=== PATIENT | male | born 1965 | race Caucasian/White ===

== ENCOUNTER → 2018-02-20 | Outpatient (CLI) | payer OTHER ==
[~2018-02-20] VITALS: Ht 175.3 cm; Wt 74.8 kg
[~2018-02-20] MED LIST: HUMIRA40 MG/0.1 SUBQ; MULTI VITAMIN1 EACH PO
--- NOTE | ~2018-02-20 | PATH ---
[facility] [place] [address] PATHOLOGY RPT PROCEDURE Name: THALIA LEIGH Room #: REG [facility] M.Charo.#: [id number] Admission: 02/20/18 Date of : 69 Discharge: Report #: [id number] Path Case #: [id number] [facility] Accession Number: [id number] . 01 Material submitted: . PART A: RANDOM BX OF CECUM AND ASCENDING COLON R/O DYSPLASIA HX OF CROHNS PART B: RANDOM BX OF TRANSVERSE COLON R/O DYSPLASIA HX OF CROHNS PART C: RANDOM BX OF DESCENDING COLON R/O DYSPLASIA HX OF CROHNS PART D: POLYP AT DESCENDING COLON PART E: RANDOM BX AT SIGMOID R/O DYSPLASIA HX OF CROHNS PART F: RANDOM BX AT RECTUM R/O DYSPLASIA HX OF CROHNS . 01 Clinical history: . Pre-OP DX: Hx of Crohn's Post-OP DX: Colon polyp, Hx of Crohn's . 02 Diagnosis: A. Colonic mucosa, "random biopsy of cecum and ascending colon": - Mildly active chronic colitis with acute cryptitis and with lamina propria chronic inflammation. No well-defined granulomas seen. - There is no evidence of dysplasia or malignancy. . B. Colonic mucosa, "random biopsy of transverse colon": - Mildly active chronic colitis with acute cryptitis and with lamina propria inflammation. - There is no evidence of dysplasia or malignancy. . C. Colonic mucosa, "random biopsy of descending colon": - Mildly active chronic colitis with acute cryptitis and with lamina propria inflammation with rare giant cells consistent with early granuloma. - There is no evidence of dysplasia or malignancy. . D. Colonic mucosa, "polyp of descending colon": - Inflamed tubular adenoma. - There is no evidence of high-grade dysplasia or malignancy. - Fragments of colonic mucosa also reveal moderately active chronic colitis with acute cryptitis and with lamina propria chronic inflammation. . E. Colon mucosa, "random biopsy at sigmoid colon": - Inactive chronic colitis. - There is no evidence of dysplasia or malignancy. . F. Colonic mucosa, "random biopsy at rectum": - Mildly active chronic colitis. - No obvious granulomas or dysplasia are seen. See comment. . (SHA:sherry; 02/21/2018) [place] [address] PATHOLOGY RPT PROCEDURE Name: THALIA LEIGH Room #: REG CLSofia Chan#: [id number] Admission: 02/20/18 Date of : 69 Discharge: Report #: [id number] Path Case #: [id number] R/02/21/2018 . 02 Comment: The biopsies reveal various degrees of mildly active chronic colitis with acute cryptitis and with lamina propria inflammation. No obvious high-grade dysplasia is seen. . The differential includes inflammatory bowel disease. An occasional multinucleated giant cell is seen, and history of Crohn's disease is noted. Infectious etiologies cannot be entirely excluded. . Suggest clinical correlation. . (TANVIR:sherry; 02/21/2018) . 02 Electronically signed: . Fan Sarkar MD, Pathologist NPI- [id number] . 01 Gross description: . A. Received in formalin labeled "Thalia Leigh, BX of cecum and ascending colon, rule out dysplasia," are multiple segments of camacho soft tissue measuring 1.1 x 0.4 x 0.1 cm in aggregate dimensions. The specimen is filtered and entirely submitted in cassette A1. . B. Received in formalin labeled "Weist Thalia, random BX of transverse colon, rule out dysplasia," are multiple segments of camacho soft tissue measuring 2.5 x 0.3 x 0.1 cm in aggregate dimensions. The specimen is filtered and entirely submitted in cassette B1. . C. Received in formalin labeled "Weist, Thalia, random BX of descending colon, rule out dysplasia," are multiple segments of camacho soft tissue measuring 2.1 x 0.3 x 0.1 cm in aggregate dimensions. The specimen is filtered and entirely submitted in cassette C1. . D. Received in formalin labeled "Weist, Thalia, polyp at descending colon," are multiple segments of camacho soft tissue measuring 1.6 x 0.4 x 0.3 cm in aggregate dimensions. The specimen is filtered and entirely submitted in cassette D1. . E. Received in formalin labeled "Weist, Thalia, random BX at sigmoid, rule out dysplasia," are multiple segments of camacho soft tissue measuring 1.5 x 0.4 x 0.2 cm in aggregate dimensions. The specimen is filtered and entirely submitted in cassette E1. . F. Received in formalin labeled "Weist, Thalia, random BX of rectum, rule out dysplasia," are multiple segments of camacho soft tissue measuring 1.[address] [address] PATHOLOGY RPT PROCEDURE Name: THALIA LEIGH Room #: REG MIKE Tapia.#: [id number] Admission: 02/20/18 Date of : 69 Discharge: Report #: [id number] Path Case #: [id number] 0.6 x 0.1 cm in aggregate dimensions. The specimen is filtered and entirely submitted in cassette F1. (TSD; 02/20/2018) TOB/TOB . 02 Pathologist provided ICD-10: K52.9, D12.4 . 02 CPT . 391121, 600070, 232214, 051899, 585278, 260249 Specimen Comment: A courtesy copy of this report has been sent to Specimen Comment: [phone]. Specimen Comment: Report sent to / DR DAILEY Performed at: [address] [facility] [address], [place], [place] [id number] MD Abelino Hoover MD Phone: [phone] Performed at: [address] [facility] [address] [id number] MD Fang Chavez MD Phone: [phone]
--- NOTE | ~2018-02-20 | P ---
[facility] [place] [address] [place] [address] PROCEDURE REPORT Name: THALIA LEIGH Room #: REG [facility].#: [id number] Admission: 02/20/18 Attend Phys: Thalia Salcedo MD Discharge: Date of : 69 Report #: [id number] THIS REPORT FOR: //name// CC: LION Salcedo Physician staff DATE OF SERVICE: 02/20/2018 BRIEF HISTORY: The patient is a 52-year-old male known to me with history of Crohn disease on a weekly regimen of Humira. He did have recent exacerbation of disease and went from every other week to weekly and feels improved. PREOPERATIVE DIAGNOSIS: Crohn's disease. POSTOPERATIVE DIAGNOSIS: Sessile polyp, descending colon. MEDICATIONS: Deep sedation with propofol per anesthesia. SPECIMENS: 1. Random biopsy, cecum and proximal colon. 2. Random biopsy, transverse colon. 3. Random biopsy, descending colon. 4. Polyp, descending colon. 5. Random biopsy, sigmoid colon. 6. Random biopsy, rectum. ESTIMATED BLOOD LOSS: 10 mL PROCEDURE: Colonoscopy to cecum and terminal ileum with biopsy and snare polypectomy and hemostasis at the polypectomy site. FINDINGS: Prior to propofol sedation, procedure of colonoscopy was discussed with the patient as well as potential risks and its complications. He indicates he understands and desires to proceed. DESCRIPTION OF PROCEDURE: With the patient in left lateral decubitus position, digital examination was completed, which revealed no abnormalities. Subsequently, the Olympus video colonoscope was introduced in the rectum, advanced under direct vision to the cecum. It was done with minimal difficulty. The cecum was identified by the ileocecal valve and the appendiceal orifice. I was able to visualize the distal segment of the terminal ileum. I was able to visualize at least 25 cm of distal terminal ileum and it was all noted to be normal. At that point, the scope was slowly withdrawn and careful circumferential views were obtained. Upon slow withdrawal of the scope, the [facility] [address] [place] [address] PROCEDURE REPORT Name: THALIA LEIGH Room #: REG [facility].#: [id number] Admission: 02/20/18 Attend Phys: Thalia Salcedo MD Discharge: Date of : 69 Report #: [id number] prep was noted to be excellent. The mucosa was within normal limits, normal vascular pattern, normal light reflex. As we withdrew the scope, the mucosa was intact. The vascularity was somewhat irregular; however, all of his ulcers and erosions were not seen. The mucosal irregularity may be result of previous inflammatory disease. Multiple random biopsies were obtained. The mucosal pattern was about the same until we reached the mid descending colon at which point an approximately 8 mm sessile polyp was seen and removed by cold snare polypectomy. The polyp was recovered; however, there was persistent oozing from the polypectomy site and 2 hemostatic clips were placed on the polypectomy site with good control. The scope was further withdrawn and no additional abnormalities were seen. The scope was withdrawn in the rectum and no abnormalities were seen. Upon retroflexion, the anal verge area was normal. There was no evidence of fistula disease or anal verge ulcerations. Scope was withdrawn and the patient tolerated the procedure well. CONDITION OF THE PATIENT UPON DISCHARGE: Following procedure, the patient drowsy, arousable. He will be discharged home when fully ambulatory. INSTRUCTIONS TO THE PATIENT AND FAMILY AT THE TIME OF DISCHARGE: The patient with findings as noted above. I do not see overtly obvious disease. We will follow up on biopsies and pathology. In addition, I did obtain some biopsies of the base of the polypectomy site and they were placed in the random descending colon container. We will make further recommendations after reviewing his path. For the time being, he should continue his Humira weekly. By: [id number] Thalia Salcedo MD /nt
== END | disposition home or self-care (01) ==
LOC: GI 07:36
DX: D12.4 Benign neoplasm of descending colon (principal); K52.9 Noninfective gastroenteritis and colitis, unspecified; Z98.890 Other specified postprocedural states